=== PATIENT | male | born 1950 | race Caucasian/White ===

== ENCOUNTER → 2020-10-15 10:08 | Outpatient (BNVA) | payer BC, SELFPAY | PROVIDERS: PCP Internal Medicine; Visit Provider Surgery | DX: R91.1 Solitary pulmonary nodule (principal); Z87.891 Personal history of nicotine dependence | CPT/HCPCS: 99212 ==

== ENCOUNTER 2020-10-22 11:52 | Outpatient (REF) | payer BC, SELFPAY ==
--- NOTE | 2020-10-22 15:56 | PFT_ITS ---
FLOWS: FEV1 121% of predicted at 3.88 L. FVC 112% of predicted at 4.87 L. FEV1 to FVC ratio of 0.80. No bronchodilator response except small to medium airways. LUNG VOLUMES: Total lung capacity 106% of predicted at 7.28 L. Residual volume 115% of predicted at 2.72 L. Slow vital capacity 102% of predicted at 4.56 L. Expiratory reserve volume 130% of predicted at 1.62 L. Diffusion capacity is mildly decreased. IMPRESSION: No obstructive or restrictive ventilatory defect. No bronchodilator response except small to medium airways. Dannie Leyva MD AP/MODL / [id number]
== END 2020-10-22 11:53 | disposition home or self-care (01) ==
LOC: HO.RESP 11:52
PROVIDERS: PCP Internal Medicine; Visit Provider Surgery
DX: R91.1 Solitary pulmonary nodule (principal)
CPT/HCPCS: 94060; 94727; 94729

== ENCOUNTER 2020-11-02 13:00 | Outpatient (REF) | payer BC, SELFPAY ==
--- NOTE | ~2020-11-02 | PE_ITS ---
EXAMINATION: PET/CT FUSION SKULL TO THIGH CLINICAL INFORMATION: Solitary pulmonary nodule. COMPARISON: CT chest 10/06/2020 performed at [facility]. TECHNIQUE: Following intravenous administration of 16.9 mCi of F-18 FDG in left antecubital vein, whole-body emission scan from skull base to thigh was obtained approximately 60 minutes later. 3.[address] axial transmission [address] scan was obtained without oral or IV contrast. Baseline glucose measured 100 mg/DL. Radiation dose DLP measured 424.13 mGy-cm. FINDINGS: SKULL BASE AND NECK: There is no abnormal metabolic activity seen in the neck or the skull base region. On CT there is no intracranial bleed, mass or mass effect. The paranasal sinuses are well aerated and clear. The mastoid air cells are clear. There is normal symmetry of bilateral submandibular and parotid glands. No abnormal lymph nodes or neck mass seen. CHEST: There is no abnormal metabolic activity seen in the chest especially in the right upper lobe or the left hilar regions where spiculated nodules were noted on the outside CT chest exam. On CT the lungs are well expanded. No right apical mass is seen. Minimal atelectatic changes are seen in the right lower lobe superior segment. Mild ground-glass attenuation is seen in the perihilar regions. No definite pulmonary nodule, mass or consolidation seen. No mediastinal mass or adenopathy seen. There is atherosclerotic calcification of thoracic arch and the coronary arteries. The thyroid lobes are symmetrical and normal. ABDOMEN AND PELVIS: There is no abnormal metabolic activity seen in the abdomen or pelvis. Normal metabolic activity seen in the kidneys, ureters and the bladder. On CT visualized liver, spleen, pancreas and bilateral adrenal glands unremarkable. No radiopaque gallstones, radiopaque renal calculi or hydronephrosis. There is a moderate-sized 3.8 x 3.8 cm exophytic cyst lower pole left kidney. The bowel gas pattern is nonspecific. No abnormal retroperitoneal or pelvic lymph nodes seen. MSK: Bone windows reveal mild degenerative disc changes L4-L5, L3-L4, L2-L3 and L1-L2 disc levels with ventral and posterior spondylosis. No lytic or sclerotic process seen. PET/PET CT fusion skull to thigh IMPRESSION: No abnormal metabolic activity seen in the chest especially in the right upper lobe or the left parahilar regions. The entire PET/CT skull base to proximal femur is unremarkable.
== END 2020-11-02 13:01 | disposition home or self-care (01) ==
LOC: HO.PET 13:00
PROVIDERS: Visit Provider Surgery
DX: Z13.89 Encounter for screening for other disorder (principal)

== ENCOUNTER → 2020-11-19 10:18 | Outpatient (BNVA) | payer BC, SELFPAY | PROVIDERS: PCP Internal Medicine; Visit Provider Surgery | DX: R91.1 Solitary pulmonary nodule (principal) | CPT/HCPCS: 99212 ==